=== PATIENT | female | born 1970 | race Caucasian/White ===

== ENCOUNTER → 2024-06-12 07:27 | Outpatient (REF) | payer BC, SELFPAY | LOC: WDC 07:27 | PROVIDERS: ATTENDING PHYSICIAN Obstetrics & Gynecology Gynecology; FAMILY PHYSICIAN Nurse Practitioner Family | DX: Z12.31 Encounter for screening mammogram for malignant neoplasm of breast (principal) | CPT/HCPCS: 77063; 77067 ==

== ENCOUNTER → 2025-06-17 18:36 | Outpatient (REF) | payer BC, SELFPAY | LOC: WDC 18:36 | PROVIDERS: ATTENDING PHYSICIAN Obstetrics & Gynecology Gynecology; FAMILY PHYSICIAN Family Medicine | DX: Z12.31 Encounter for screening mammogram for malignant neoplasm of breast (principal) | CPT/HCPCS: 77063; 77067 ==